=== PATIENT | female | born 1955 | race Caucasian/White ===

== ENCOUNTER 2022-12-22 10:11 | Inpatient (IN) | payer MEDICARE, BC ==
[2022-12-22] MEDS ORDERED: Sennosides/Docusate Sodium 50-8.6 MG Tab PO PRN (10:35)
[2022-12-22] MEDS ORDERED: Ondansetron 4 MG Tab.DIS PO PRN (10:35)
[2022-12-22] MEDS ORDERED: Magnesium Hydroxide 400 MG/5 ML Susp 30 ML Cup PO PRN (10:35)
[2022-12-22] MEDS ORDERED: Ondansetron 4 MG/2 ML SDV IV PRN (10:35)
[2022-12-22 10:56] LABS: HEMATOCRIT 36.4 % (34.3-46.0); HEMOGLOBIN 11.9 g/dL (11.2-15.5); MEAN CORPUSCULAR HEMOGLOBIN 27.2 pg (31.6-35.5); MEAN CORPUSCULAR HGB CONC 32.7 g/dL (31.6-35.5); MEAN CORPUSCULAR VOLUME 83.3 fL (81.4-99.0); RED BLOOD CELL COUNT 4.37 M/uL (3.77-5.24); WHITE BLOOD CELL COUNT,WBC 7.2 K/uL (3.2-11.0)
[2022-12-22 11:30] LABS: A/G RATIO 0.8 (1.2-2.2); ALANINE AMINOTRANSFERASE,ALT 164 U/L (12-78); ALKALINE PHOSPHATASE 86 U/L (46-116); ASPARTATE AMNIOTRANSFERASE,AST 155 U/L (15-37); BILIRUBIN TOTAL 0.9 mg/dL (0.2-1.0); BLOOD UREA NITROGEN,BUN 16 mg/dL (7-18); CALCIUM 8.8 mg/dL (8.5-10.1); CARBON DIOXIDE,CO2 25 mmol/L (21-32); CHLORIDE,CL 103 mmol/L (100-108); ESTIMATED GFR 61 mL/min (>60); GLUCOSE RANDOM 102 mg/dL (74-106); POTASSIUM,K 3.8 mmol/L (3.6-5.2); PROTEIN TOTAL,TP 6.7 g/dL (6.4-8.2); SODIUM,NA 138 mmol/L (140-148); TROPONIN I HIGH SENSITIVITY 7.4 pg/mL (<=60.3)
[2022-12-22 11:31] LABS: ANION GAP 13.8 mmol/L (5.0-14.0)
[2022-12-22 11:32] LABS: MAGNESIUM 2.1 mg/dL (1.8-2.4); PHOSPHORUS 3.4 mg/dL (2.5-4.9)
[2022-12-22] MEDS ORDERED: Enoxaparin 40 MG/0.4 ML Syringe SUBCUT SCH (12:00)
[2022-12-22] MEDS: Doxycycline 100 MG Cap PO SCH ×2 (12:48→21:21)
[2022-12-22] MEDS ORDERED: Furosemide 40 MG/4 ML VIAL IVPUSH ONE (13:00)
[2022-12-22 13:24] LABS: LYME AB IgG Negative (Negative); LYME AB IgM Negative (Negative)
[2022-12-22] MEDS ORDERED: Metoprolol Tartrate 5 MG/5 ML SDV IVPUSH PRN (15:07)
[2022-12-22] MEDS: Hydrochlorothiazide 12.5 MG Cap PO SCH (15:55)
[2022-12-22] MEDS ORDERED: Metoprolol Tartrate 25 MG Tab PO SCH (16:00)
[2022-12-22] MEDS: Sucralfate 1 GM Tab PO SCH ×2 (17:32→20:48)
[2022-12-22] MEDS: Lisinopril 5 MG Tab PO SCH (19:04)
[2022-12-22 19:10] LABS: INR 1.1; PROTHROMBIN TIME 10.7 sec (9.2-10.6)
[2022-12-22] MEDS ORDERED: Warfarin 5 MG Tab PO ONE (20:00)
[2022-12-22] MEDS: Enoxaparin 120 MG/0.8 ML Syringe SUBCUT SCH (20:47)
[2022-12-22] MEDS: Melatonin 3 MG Tab PO SCH (20:47)
[2022-12-22] MEDS: rOPINIRole 1 MG Tab PO SCH (20:47)
[2022-12-22] MEDS ORDERED: Metoprolol Tartrate 50 MG Tab PO SCH (21:00)
[2022-12-22] MEDS: Acetaminophen 325 MG Tab PO PRN (22:23)
[2022-12-23] MEDS: Metoprolol Tartrate 25 MG Tab PO SCH ×2 (05:58→17:32)
[2022-12-23 06:19] LABS: CHOLESTEROL HDL 45 mg/dL (40-60); CHOLESTEROL LDL DIRECT 136 mg/dL (0-100); CHOLESTEROL TOTAL 205 mg/dL (0-200); TRIGLYCERIDES 125 mg/dL (15-150)
[2022-12-23 06:37] LABS: LYME AB IgG Negative (Negative); LYME AB IgM Negative (Negative)
[2022-12-23] MEDS: Sucralfate 1 GM Tab PO SCH ×3 (07:55→17:31)
[2022-12-23] MEDS: Pantoprazole 40 MG Tab.CR PO SCH (07:59)
[2022-12-23] MEDS: Enoxaparin 120 MG/0.8 ML Syringe SUBCUT SCH (08:00)
[2022-12-23] MEDS: Hydrochlorothiazide 12.5 MG Cap PO SCH (08:01)
[2022-12-23] MEDS: Calcium Carbonate 500 MG Tab.Chew PO SCH (08:01)
[2022-12-23] MEDS: Lisinopril 5 MG Tab PO SCH (08:01)
[2022-12-23] MEDS: Doxycycline 100 MG Cap PO SCH ×2 (08:01→20:35)
[2022-12-23] MEDS: Multivitamins with Iron/Calcium/Folic Acid/Minerals Tab PO SCH (08:01)
[2022-12-23] MEDS ORDERED: Lisinopril 5 MG Tab PO SCH (09:00)
[2022-12-23] MEDS ORDERED: Warfarin Sliding Scale PO SCH (09:00)
[2022-12-23] MEDS ORDERED: Lisinopril 5 MG Tab PO ONE (09:00)
[2022-12-23 09:54] LABS: A/G RATIO 0.8 (1.2-2.2); ALANINE AMINOTRANSFERASE,ALT 160 U/L (12-78); ALBUMIN 3.1 g/dL (3.4-5.0); ALKALINE PHOSPHATASE 81 U/L (46-116); ASPARTATE AMNIOTRANSFERASE,AST 99 U/L (15-37); BLOOD UREA NITROGEN,BUN 16 mg/dL (7-18); CALCIUM 9.1 mg/dL (8.5-10.1); CARBON DIOXIDE,CO2 25 mmol/L (21-32); CHLORIDE,CL 100 mmol/L (100-108); CREATININE 1.1 mg/dL (0.6-1.0); EST CRCL DRUG DOSING (CG) 42.27 mL/min; ESTIMATED GFR 55 mL/min (>60); GLUCOSE RANDOM 101 mg/dL (74-106); POTASSIUM,K 3.4 mmol/L (3.6-5.2); PROTEIN TOTAL,TP 6.9 g/dL (6.4-8.2); SODIUM,NA 136 mmol/L (140-148)
[2022-12-23 09:55] LABS: ANION GAP 14.4 mmol/L (5.0-14.0)
[2022-12-23] MEDS ORDERED: Potassium Chloride 20 MEQ Tab.ER PO ONE (12:55)
[2022-12-23] MEDS ORDERED: Warfarin 5 MG Tab PO ONE (13:00)
[2022-12-23] MEDS: Melatonin 3 MG Tab PO SCH (20:35)
[2022-12-23] MEDS: Acetaminophen 325 MG Tab PO PRN (20:35)
[2022-12-23] MEDS: rOPINIRole 1 MG Tab PO SCH (20:36)
[2022-12-24 05:27] LABS: CREATININE 1.2 mg/dL (0.6-1.0); EST CRCL DRUG DOSING (CG) 38.75 mL/min; POTASSIUM,K 4.1 mmol/L (3.6-5.2)
[2022-12-24 05:29] LABS: ANION GAP 12.1 mmol/L (5.0-14.0)
[2022-12-24 05:30] LABS: INR 1.1; PROTHROMBIN TIME 11.2 sec (9.2-10.6)
[2022-12-24] MEDS: Metoprolol Tartrate 25 MG Tab PO SCH (06:43)
[2022-12-24] MEDS: Pantoprazole 40 MG Tab.CR PO SCH (07:13)
[2022-12-24] MEDS: Calcium Carbonate 500 MG Tab.Chew PO SCH (08:23)
[2022-12-24] MEDS: Multivitamins with Iron/Calcium/Folic Acid/Minerals Tab PO SCH (08:23)
[2022-12-24] MEDS: Doxycycline 100 MG Cap PO SCH ×2 (08:24→20:58)
[2022-12-24] MEDS: Lisinopril 10 MG Tab PO SCH (08:24)
[2022-12-24] MEDS: Enoxaparin 40 MG/0.4 ML Syringe SUBCUT SCH (08:24)
[2022-12-24] MEDS: Hydrochlorothiazide 25 MG Tab PO SCH (08:25)
[2022-12-24] MEDS: Sucralfate 1 GM Tab PO SCH ×3 (11:10→20:58)
[2022-12-24] MEDS ORDERED: Warfarin 2.5 MG, Warfarin 5 MG PO ONE ×2 (13:00)
[2022-12-24] MEDS ORDERED: Diltiazem 25 MG/5 ML SDV IVPUSH ONE (14:15)
[2022-12-24] MEDS ORDERED: Metoprolol Tartrate 50 MG Tab PO SCH (15:30)
[2022-12-24] MEDS: Diltiazem 100 MG in Sodium Chloride 0.9% 100 ML IV SCH (18:23)
[2022-12-24] MEDS: Acetaminophen 325 MG Tab PO PRN (20:54)
[2022-12-24] MEDS: Melatonin 3 MG Tab PO SCH (20:58)
[2022-12-24] MEDS: rOPINIRole 1 MG Tab PO SCH (20:58)
[2022-12-25] MEDS ORDERED: Metoprolol Tartrate 50 MG Tab PO SCH ×2 (06:00→14:00)
[2022-12-25 06:22] LABS: INR 1.2; PROTHROMBIN TIME 12.4 sec (9.2-10.6)
[2022-12-25 06:25] LABS: A/G RATIO 0.8 (1.2-2.2); ALANINE AMINOTRANSFERASE,ALT 90 U/L (12-78); ALBUMIN 3.1 g/dL (3.4-5.0); ALKALINE PHOSPHATASE 72 U/L (46-116); ASPARTATE AMNIOTRANSFERASE,AST 29 U/L (15-37); BILIRUBIN TOTAL 0.9 mg/dL (0.2-1.0); BLOOD UREA NITROGEN,BUN 20 mg/dL (7-18); CARBON DIOXIDE,CO2 26 mmol/L (21-32); CHLORIDE,CL 102 mmol/L (100-108); CREATININE 1.1 mg/dL (0.6-1.0); EST CRCL DRUG DOSING (CG) 42.27 mL/min; ESTIMATED GFR 55 mL/min (>60); GLUCOSE RANDOM 91 mg/dL (74-106); PROTEIN TOTAL,TP 6.8 g/dL (6.4-8.2); SODIUM,NA 136 mmol/L (140-148)
[2022-12-25] MEDS: Diltiazem 100 MG in Sodium Chloride 0.9% 100 ML IV SCH (06:45)
[2022-12-25] MEDS: Calcium Carbonate 500 MG Tab.Chew PO SCH (08:48)
[2022-12-25] MEDS: Sucralfate 1 GM Tab PO SCH ×4 (08:48→20:03)
[2022-12-25] MEDS: Enoxaparin 40 MG/0.4 ML Syringe SUBCUT SCH (08:49)
[2022-12-25] MEDS: Hydrochlorothiazide 25 MG Tab PO SCH (08:49)
[2022-12-25] MEDS: Pantoprazole 40 MG Tab.CR PO SCH (08:49)
[2022-12-25] MEDS: Lisinopril 10 MG Tab PO SCH (08:49)
[2022-12-25] MEDS: Doxycycline 100 MG Cap PO SCH ×2 (08:50→20:05)
[2022-12-25] MEDS: Multivitamins with Iron/Calcium/Folic Acid/Minerals Tab PO SCH (08:50)
[2022-12-25] MEDS ORDERED: Warfarin 5 MG Tab PO ONE (13:00)
[2022-12-25] MEDS ORDERED: Warfarin 2.5 MG Tab PO ONE (13:55)
[2022-12-25] MEDS: Diltiazem IR 30 MG Tab PO SCH ×2 (14:16→20:03)
[2022-12-25] MEDS ORDERED: Furosemide 40 MG/4 ML VIAL IVPUSH ONE (14:30)
[2022-12-25] MEDS: rOPINIRole 1 MG Tab PO SCH (20:04)
[2022-12-25] MEDS: Melatonin 3 MG Tab PO SCH (20:04)
[2022-12-25] MEDS ORDERED: Metoprolol Succinate 50 MG Tab.ER PO SCH (21:00)
[2022-12-25] MEDS ORDERED: Metoprolol Succinate 50 MG Tab.ER PO ONE (23:07)
[2022-12-26] MEDS: Diltiazem IR 30 MG Tab PO SCH ×2 (01:08→07:42)
[2022-12-26 04:53] LABS: INR 1.5; PROTHROMBIN TIME 15.3 sec (9.2-10.6)
[2022-12-26 04:54] LABS: CALCIUM 9.2 mg/dL (8.5-10.1); CREATININE 1.5 mg/dL (0.6-1.0); EST CRCL DRUG DOSING (CG) 31.22 mL/min; POTASSIUM,K 3.6 mmol/L (3.6-5.2)
[2022-12-26 05:02] LABS: ANION GAP 12.6 mmol/L (5.0-14.0)
[2022-12-26] MEDS: Sucralfate 1 GM Tab PO SCH ×4 (07:42→20:27)
[2022-12-26] MEDS: Pantoprazole 40 MG Tab.CR PO SCH (07:42)
[2022-12-26] MEDS: Enoxaparin 40 MG/0.4 ML Syringe SUBCUT SCH (08:31)
[2022-12-26] MEDS: Hydrochlorothiazide 25 MG Tab PO SCH (08:31)
[2022-12-26] MEDS: Calcium Carbonate 500 MG Tab.Chew PO SCH (08:32)
[2022-12-26] MEDS: Metoprolol Succinate 50 MG Tab.ER PO SCH ×2 (08:32→20:26)
[2022-12-26] MEDS: Multivitamins with Iron/Calcium/Folic Acid/Minerals Tab PO SCH (08:32)
[2022-12-26] MEDS: Doxycycline 100 MG Cap PO SCH ×2 (08:33→20:26)
[2022-12-26] MEDS ORDERED: Diltiazem 180 MG Cap.CD PO SCH (11:00)
[2022-12-26] MEDS ORDERED: Warfarin 2.5 MG Tab PO ONE (11:00)
[2022-12-26 11:10] LABS: HBSAG SCREEN Negative (Negative); HCV AB Non Reactive (Non Reactive); HEP A AB, IGM Negative (Negative); HEP B CORE AB, IGM Negative (Negative)
[2022-12-26] MEDS: Melatonin 3 MG Tab PO SCH (20:26)
[2022-12-26] MEDS: rOPINIRole 1 MG Tab PO SCH (20:28)
[2022-12-27 04:48] LABS: CALCIUM 8.6 mg/dL (8.5-10.1); CREATININE 2.1 mg/dL (0.6-1.0); EST CRCL DRUG DOSING (CG) 22.3 mL/min; POTASSIUM,K 3.6 mmol/L (3.6-5.2)
[2022-12-27 04:50] LABS: INR 2.5; PROTHROMBIN TIME 24.4 sec (9.2-10.6)
[2022-12-27 05:03] LABS: ANION GAP 13.6 mmol/L (5.0-14.0)
[2022-12-27] MEDS: Pantoprazole 40 MG Tab.CR PO SCH (07:26)
[2022-12-27] MEDS: Sucralfate 1 GM Tab PO SCH ×4 (07:26→19:41)
[2022-12-27] MEDS ORDERED: Metoprolol Succinate 50 MG Tab.ER PO SCH (08:06)
[2022-12-27] MEDS ORDERED: Diltiazem 120 MG Cap.CD PO SCH (09:00)
[2022-12-27] MEDS: Multivitamins with Iron/Calcium/Folic Acid/Minerals Tab PO SCH (09:09)
[2022-12-27] MEDS: Calcium Carbonate 500 MG Tab.Chew PO SCH (09:09)
[2022-12-27] MEDS: Doxycycline 100 MG Cap PO SCH ×2 (09:09→21:08)
[2022-12-27] MEDS: Hydrochlorothiazide 25 MG Tab PO SCH (09:09)
[2022-12-27] MEDS ORDERED: Sodium Chloride 0.9% 1,000 ML IV SCH (10:15)
[2022-12-27] MEDS ORDERED: Potassium Chloride 20 MEQ Tab.ER PO ONE (10:15)
[2022-12-27] MEDS ORDERED: Warfarin 5 MG Tab PO SCH (13:00)
[2022-12-27] MEDS: Diltiazem IR 30 MG Tab PO SCH ×2 (19:41→23:17)
[2022-12-27] MEDS: rOPINIRole 1 MG Tab PO SCH (21:08)
[2022-12-27] MEDS: Metoprolol Succinate 50 MG Tab.ER PO SCH (21:09)
[2022-12-27] MEDS: Melatonin 3 MG Tab PO SCH (21:09)
[2022-12-28] MEDS: Diltiazem IR 30 MG Tab PO SCH (04:39)
[2022-12-28 05:15] LABS: INR 2.3; PROTHROMBIN TIME 21.8 sec (9.2-10.6)
[2022-12-28 05:17] LABS: ANION GAP 13.3 mmol/L (5.0-14.0); CALCIUM 8.7 mg/dL (8.5-10.1); CREATININE 1.5 mg/dL (0.6-1.0); EST CRCL DRUG DOSING (CG) 31.22 mL/min; POTASSIUM,K 4.3 mmol/L (3.6-5.2)
[2022-12-28] MEDS: Sucralfate 1 GM Tab PO SCH ×4 (07:33→20:47)
[2022-12-28] MEDS: Pantoprazole 40 MG Tab.CR PO SCH (07:34)
[2022-12-28] MEDS ORDERED: Sodium Chloride 0.9% 50 ML IV ONE (09:37)
[2022-12-28] MEDS ORDERED: Sodium Chloride 0.9% 10 ML Syringe FLUSH ONE (09:37)
[2022-12-28] MEDS: Diltiazem 120 MG Cap.CD PO SCH (09:42)
[2022-12-28] MEDS: Metoprolol Succinate 50 MG Tab.ER PO SCH ×2 (09:43→20:46)
[2022-12-28] MEDS ORDERED: Iopamidol 755 Mg/ML 100 ML Bottle IV SCH (09:45)
[2022-12-28] MEDS: Doxycycline 100 MG Cap PO SCH ×2 (09:45→20:48)
[2022-12-28] MEDS: Multivitamins with Iron/Calcium/Folic Acid/Minerals Tab PO SCH (09:45)
[2022-12-28] MEDS: Calcium Carbonate 500 MG Tab.Chew PO SCH (09:46)
[2022-12-28] MEDS: Melatonin 3 MG Tab PO SCH (20:47)
[2022-12-28] MEDS: rOPINIRole 1 MG Tab PO SCH (20:47)
[2022-12-29 05:49] LABS: CALCIUM 8.9 mg/dL (8.5-10.1); CREATININE 1.1 mg/dL (0.6-1.0); EST CRCL DRUG DOSING (CG) 42.27 mL/min; INR 1.7; POTASSIUM,K 4.1 mmol/L (3.6-5.2); PROTHROMBIN TIME 16.3 sec (9.2-10.6)
[2022-12-29 05:50] LABS: ANION GAP 13.1 mmol/L (5.0-14.0)
[2022-12-29] MEDS: Sucralfate 1 GM Tab PO SCH ×2 (07:40→11:54)
[2022-12-29] MEDS: Pantoprazole 40 MG Tab.CR PO SCH (07:41)
[2022-12-29] MEDS: Diltiazem 120 MG Cap.CD PO SCH (09:21)
[2022-12-29] MEDS: Multivitamins with Iron/Calcium/Folic Acid/Minerals Tab PO SCH (09:25)
[2022-12-29] MEDS: Metoprolol Succinate 50 MG Tab.ER PO SCH (09:25)
[2022-12-29] MEDS: Doxycycline 100 MG Cap PO SCH (09:26)
[2022-12-29] MEDS: Calcium Carbonate 500 MG Tab.Chew PO SCH (09:26)
[2022-12-29] MEDS ORDERED: Enoxaparin 150 MG/1 ML Syringe SUBCUT ONE (09:45)
[2022-12-29] MEDS ORDERED: Warfarin 2.5 MG Tab PO ONE (10:00)
[2022-12-29 13:13] LABS: A. PHAGOCYTOPHILUM IGG Negative (Neg:<1:64); A. PHAGOCYTOPHILUM IGM Negative (Neg:<1:20)
== END 2022-12-29 12:24 | disposition home or self-care (01) | DRG 175 ==
LOC: UNDOADMIN 10:11 → JP.ICU 10:11 → UNDODISIN 12-29 12:24
PROVIDERS: ADMIT Internal Medicine; ATTEND Hospitalist
DX: I26.99 Other pulmonary embolism without acute cor pulmonale (principal); J96.01 Acute respiratory failure with hypoxia; A79.82 Anaplasmosis [A. phagocytophilum]; J90 Pleural effusion, not elsewhere classified; Z68.41 Body mass index [BMI] 40.0-44.9, adult; I50.1 Left ventricular failure, unspecified; I50.30 Unspecified diastolic (congestive) heart failure; I48.91 Unspecified atrial fibrillation; I11.0 Hypertensive heart disease with heart failure; K21.9 Gastro-esophageal reflux disease without esophagitis; G25.81 Restless legs syndrome; E87.6 Hypokalemia; E66.9 Obesity, unspecified; I89.0 Lymphedema, not elsewhere classified; R74.01 Elevation of levels of liver transaminase levels; I08.1 Rheumatic disorders of both mitral and tricuspid valves; Z20.822 Contact with and (suspected) exposure to COVID-19; E78.5 Hyperlipidemia, unspecified; E86.0 Dehydration; Z79.899 Other long term (current) drug therapy; Z87.81 Personal history of (healed) traumatic fracture; Z86.16 Personal history of COVID-19; Z90.49 Acquired absence of other specified parts of digestive tract; Z86.718 Personal history of other venous thrombosis and embolism
CPT/HCPCS: 36415; 71045; 71045-26; 71046; 71046-26; 71275; 71275-26; 76705; 80048; 80053; 80061; 80074; 83735; 84100; 84443; 84484; 85027; 85610; 86618; 86666; 93005; 93306; A9270-GY; J1650; J1940; J3490; J7030; Q0162; Q9967; U0002